=== PATIENT | female | born 1975 | race Asian ===

== ENCOUNTER 2019-04-04 21:18 | Emergency (ER) | payer OTHER ==
[~2019-04-04] VITALS: Ht 152.4 cm; Wt 59.0 kg
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
[2019-04-04] MEDS ORDERED: KETOROLAC TROMETHAMINE INJ 30 MG/ML VIAL IM ONE (22:30)
--- NOTE | 2019-04-04 22:53 | NUR ---
URINE OBTAINED AND SENT TO LAB
[2019-04-04] MEDS ORDERED: KETOROLAC TROMETHAMINE INJ 30 MG/ML VIAL ONE (23:14)
--- NOTE | 2019-04-05 00:23 | NUR ---
XRAY AT BEDSIDE
--- NOTE | 2019-04-05 01:09 | NUR ---
Patient discharged to home in stable condition. Written and verbal after care instructions given. Patient verbalizes understanding of instruction. Pt ambulatory with a steady gait
[2019-04-05 01:11] VITALS: BP 100/61
== END 2019-04-05 01:21 | disposition home or self-care (01) ==
LOC: ER 21:27
DX: S39.012A Strain of muscle, fascia and tendon of lower back, initial encounter (principal); M54.2 Cervicalgia; Z98.890 Other specified postprocedural states; Z88.0 Allergy status to penicillin; V43.52XA Car driver injured in collision with other type car in traffic accident, initial encounter; Y93.89 Activity, other specified; Y92.413 State road as the place of occurrence of the external cause; Y99.8 Other external cause status
CPT/HCPCS: 72100; 84703; 96372; 99284; J1885